=== PATIENT | female | born 1945 | race Caucasian/White ===

== ENCOUNTER → 2018-09-28 | Outpatient (CLI) | payer MEDICARE, OTHER ==
[~2018-09-28] MED LIST: ALBU6.7H INH; ATEN50TA41 PO; CINN500C2 PO; DIPH25CA61 PO; DOCU-144 PO; DULO30CA2 PO; ELET40TA PO; FLUTICASONE PROP NAS; FOLI-17 PO; GLIP5TAB10 PO; LEVO25TA4 PO; OMEG1CAP23 PO; PARO40TA3 PO; SIMPLY SALINE NAS; SITA50TA PO; TRICOR PO; [UNRECOGNIZED DRUG - CODE] PO; [UNRECOGNIZED DRUG - OTHER] PO; [UNRECOGNIZED DRUG - OTHER] TP
[2018-09-28 10:09] LABS: ALANINE AMINOTRANSFERASE 35 U/L (12-78); ALBUMIN 3.2 g/dL (3.4-5.0); ANION GAP 10 mmol/L (5-15); CALCIUM 8.8 mg/dL (8.5-10.1); CHLORIDE 106 mmol/L (98-107); CREATININE 1.08 mg/dL (0.55-1.02)
[2018-09-28 10:11] LABS: ALKALINE PHOSPHATASE 147 U/L (45-117); BILIRUBIN,TOTAL 0.2 mg/dL (0.2-1.0); TOTAL PROTEIN 6.9 g/dL (6.4-8.2)
== END | disposition home or self-care (01) ==
LOC: STAR 08:50
PROVIDERS: ATTEND Obstetrics & Gynecology Female Pelvic Medicine and Reconstructive Surgery
DX: Z01.818 Encounter for other preprocedural examination (principal); R32 Unspecified urinary incontinence; N81.10 Cystocele, unspecified; N81.6 Rectocele; R10.2 Pelvic and perineal pain; E27.8 Other specified disorders of adrenal gland
CPT/HCPCS: 36415; 80053; 93005

== ENCOUNTER 2018-10-04 05:55 | Day surgery (SDC) | payer MEDICARE, OTHER ==
[~2018-10-04] VITALS: Ht 162.6 cm; Wt 100.0 kg
[2018-10-04] MEDS ORDERED: LACTATED RINGERS 1,000 ML IV SCH (06:55)
[2018-10-04] MEDS ORDERED: BUPIVACAINE/PF 0.25% ONE ×2 (06:56→09:14)
[2018-10-04] MEDS ORDERED: EPINEPHRINE 1 MG/ML, 1ML ONE (06:56)
[2018-10-04] MEDS ORDERED: LIDOCAINE-MPF 1%, 2ML INFIL ONE (07:00)
[2018-10-04] MEDS ORDERED: NEOMY/POLYMYXIN B GU IRR. 1 ML ONE (07:23)
[2018-10-04] MEDS ORDERED: MIDAZOLAM 1 MG/ML, 2ML ONE (08:00)
[2018-10-04] MEDS ORDERED: FENTANYL PF 250 MCG/5ML ONE (08:01)
[2018-10-04] MEDS ORDERED: BUPIVACAINE/PF-EPI 0.25% 1:200K INFIL ONE (09:07)
[2018-10-04] MEDS ORDERED: LORazepam 2 MG/ML, 1ML IVPush PRN (09:30)
[2018-10-04] MEDS ORDERED: MEPERIDINE/PF 25MG/0.5ML IVPush PRN (09:30)
[2018-10-04] MEDS ORDERED: FENTANYL PF 100 MCG/2ML IV PRN (09:30)
[2018-10-04] MEDS ORDERED: OXYcodone 5 MG/5 ML ORAL.SOL UDC PO PRN (09:30)
[2018-10-04] MEDS ORDERED: ONDANSETRON ODT 8 MG PO PRN (09:30)
[2018-10-04] MEDS ORDERED: PROMETHAZINE 25 MG/ML, 1ML IV PRN (09:30)
[2018-10-04] MEDS ORDERED: ONDANSETRON 2MG/ML, 2ML IV PRN (09:30)
[2018-10-04] MEDS ORDERED: ACETAMINOPHEN 325 MG TABLET PO PRN (09:30)
[2018-10-04] MEDS ORDERED: HYDROmorphone 2 MG/ML, 1ML IVPush PRN (09:30)
[2018-10-04] MEDS ORDERED: ACETAMINOPHEN 650 MG/20.3 ML UDC ONE (10:11)
[2018-10-04] MEDS ORDERED: OXYcodone 5 MG/5 ML ORAL.SOL UDC ONE (10:12)
[2018-10-04] MEDS ORDERED: ROCURONIUM 10MG/ML,5ML ONE (11:50)
[2018-10-04] MEDS ORDERED: ONDANSETRON 2MG/ML, 2ML ONE (11:50)
[2018-10-04] MEDS ORDERED: SUCCINYLCHOLINE 20 MG/ML, 10ML ONE (11:50)
[2018-10-04] MEDS ORDERED: DEXAMETHASONE 4 MG/ML, 1ML ONE (11:50)
[2018-10-04] MEDS ORDERED: NEOSTIGMINE 1 MG/ML, 10ML ONE (11:50)
[2018-10-04] MEDS ORDERED: GLYCOPYRROLATE 0.2MG/1ML, 5ML ONE (11:50)
[2018-10-04] MEDS ORDERED: CEFAZOLIN 1,000 MG ONE (11:50)
[2018-10-04] MEDS ORDERED: PROPOFOL 10 MG/ML, 20ML ONE (11:50)
== END 2018-10-04 13:28 | disposition home or self-care (01) ==
LOC: OUT 05:55
PROVIDERS: ATTEND Obstetrics & Gynecology Female Pelvic Medicine and Reconstructive Surgery
DX: D27.1 Benign neoplasm of left ovary (principal); N83.8 Other noninflammatory disorders of ovary, fallopian tube and broad ligament; N81.89 Other female genital prolapse; N39.46 Mixed incontinence; N32.81 Overactive bladder; D64.9 Anemia, unspecified; G43.909 Migraine, unspecified, not intractable, without status migrainosus; J45.909 Unspecified asthma, uncomplicated; F32.9 Major depressive disorder, single episode, unspecified; E78.00 Pure hypercholesterolemia, unspecified; E11.9 Type 2 diabetes mellitus without complications; Z85.3 Personal history of malignant neoplasm of breast; Z90.49 Acquired absence of other specified parts of digestive tract; Z98.890 Other specified postprocedural states; Z88.5 Allergy status to narcotic agent; Z79.84 Long term (current) use of oral hypoglycemic drugs
CPT/HCPCS: 57265; 57282; 57288; 58661; 82962; 88305; C1771; J0171; J0330; J0690; J1100; J2405; J2704; J2710; J3010; J3490; J2250